=== PATIENT | female | born 1940 | race Caucasian/White ===

== ENCOUNTER 2016-08-04 14:19 | Emergency (ER) | payer OTHER ==
[2016-08-04 15:47] LABS: PROTHROMBIN TIME 12.8 SECONDS (11.7-14.0)
[2016-08-04 15:48] LABS: PTT 29.6 SECONDS (23.2-31.4)
[2016-08-04 15:51] LABS: CREATININE 1.2 mg/dL (0.5-1.0); POTASSIUM 4.5 mmol/L (3.5-5.1)
[2016-08-04 15:52] LABS: BASOPHIL 0.2 % (0-2); EOSINOPHIL 0.9 % (0-7); HCT 37.4 % (37.0-47.0); HGB 12.6 g/dl (12.5-16.0); LYMPHOCYTE 31.3 % (15-48); MCH 32.6 pg (25.0-31.0); MCHC 33.7 g/dL (32.0-36.0); MCV 96.6 fL (78.0-100.0); MONOCYTE 6.8 % (0-12); MPV 12.4 fL (6.0-9.5); NEUTROPHIL 60.8 % (41-80); PLT 214 K/uL (150-400); RBC 3.87 M/uL (4.20-5.40); RDW 12.7 % (11.5-14.0); WBC 8.7 K/uL (4.0-10.5)
== END 2016-08-04 20:51 | disposition other institution (70) ==
LOC: FER 14:19
PROVIDERS: Emergency Medicine
DX: R04.0 Epistaxis (principal); I95.89 Other hypotension; I45.10 Unspecified right bundle-branch block; I51.7 Cardiomegaly; J45.909 Unspecified asthma, uncomplicated; J44.9 Chronic obstructive pulmonary disease, unspecified; Z79.82 Long term (current) use of aspirin; Z79.51 Long term (current) use of inhaled steroids; Z79.84 Long term (current) use of oral hypoglycemic drugs; Z79.899 Other long term (current) drug therapy
CPT/HCPCS: 36415; 80048; 84484; 85025; 85610; 85730; 93005; J2405

== ENCOUNTER 2020-04-09 15:00 | Emergency (ER) | payer OTHER ==
[2020-04-09 12:35] LABS: BASOPHIL 0.2 % (0-2); EOSINOPHIL 0.5 % (0-7); LYMPHOCYTE 10.8 % (15-48); MCH 29.4 pg (25.0-31.0); MCV 101.5 fL (78.0-100.0); MONOCYTE 8.1 % (0-12); MPV 13.2 fL (6.0-9.5); NEUTROPHIL 79.7 % (41-80); NRBC 0; PLT 170 K/uL (150-400); RBC 1.97 M/uL (4.20-5.40); RDW 15.6 % (11.5-14.0); WBC 5.8 K/uL (4.0-10.5)
[2020-04-09 12:37] LABS: HGB 5.8 g/dl (12.5-16.0)
[2020-04-09 12:57] LABS: ALBUMIN 2.9 g/dL (3.4-5.0); BILIRUBIN - TOTAL 0.3 mg/dL (0.2-1.0); BUN/CREAT RATIO (CALC) 16.6 RATIO; CREATININE 1.81 mg/dL (0.51-0.95); GLOBULIN (CALCULATION) 3.7 g/dL; POTASSIUM 5.3 mmol/L (3.5-5.1); TOTAL PROTEIN 6.6 g/dL (6.4-8.2)
[2020-04-09 13:04] LABS: INR 1.06 (0.9-1.2); PROTHROMBIN TIME 13.1 SECONDS (11.4-13.6)
--- NOTE | 2020-04-09 19:30 | NUR ---
PATIENT ARRIVED ON FLOOR AT SHIFT CHANGE 1857, THIS RN GAVE REPORT THAT WAS GIVEN BY OUT PATIENT TO MAXIM GOINS AT THIS TIME. PATIENT WAS STABLE, IN BED WITH BED ALARM ON. 1ST UNIT OF BLOOD WAS COMPLETE UPON ARRIVE TO FLOOR.
--- NOTE | 2020-04-09 20:21 | NUR ---
PT RECEIVING BLOOD AT THIS TIME, COMPLETELY ALERT AND ORIENTED. VITAL SIGNS STABLE. ON 3 AND A HALF LITERS OF OXYGEN PT STATED SHE WEARS THIS AT HOME.
--- NOTE | 2020-04-09 20:42 | NUR ---
PT B/P OF 190s/[address] CHAMBERS, STATED IF PT HAD HER HOME MEDS SHE COULD TAKE THOSE. WILL CONTINUE TO MONITOR. PT NO MORE SHORT OF BREATH THAN USUAL SHE STATED
--- NOTE | 2020-04-09 22:10 | NUR ---
PT STILL REEIVING BLOOD AT THIS TIME, VITAL SIGNS STABLE, PT STATES SHE FEELS AND IS BREATHING THE SAME AND NOTHING NEW HAS CHANGED FAR HER BREATHING
--- NOTE | 2020-04-10 00:44 | NUR ---
PT VITAL SIGNS STABLE, PT LEFT VIA CAR WITH SON, OXYGEN WITH PATIENT, DISCHARGE INSTRUCTIONS AND REVIEWD WITH PATIENT
== END 2020-04-09 15:25 | disposition home or self-care (01) ==
LOC: FER 15:00
PROVIDERS: Emergency Medicine
DX: D64.9 Anemia, unspecified (principal); E11.9 Type 2 diabetes mellitus without complications; I10 Essential (primary) hypertension; Z88.5 Allergy status to narcotic agent
CPT/HCPCS: 36415; 80053; 85025; 85610; 86850; 86900; 86901; 86922; 99284; P9016

== ENCOUNTER 2020-04-10 19:38 | Emergency (ER) | payer OTHER | END 2020-04-10 23:15 | disposition home or self-care (01) | LOC: FER 19:38 | DX: R04.0 Epistaxis (principal); I10 Essential (primary) hypertension; E11.9 Type 2 diabetes mellitus without complications; J44.9 Chronic obstructive pulmonary disease, unspecified; Z95.1 Presence of aortocoronary bypass graft; Z88.5 Allergy status to narcotic agent | CPT/HCPCS: 96372; J2250 ==

== ENCOUNTER 2020-04-16 00:03 | Emergency (ER) | payer OTHER ==
[2020-04-16 00:42] LABS: BASOPHIL 0.2 % (0-2); EOSINOPHIL 1.5 % (0-7); HCT 29.9 % (37.0-47.0); HGB 9.2 g/dl (12.5-16.0); LYMPHOCYTE 13.7 % (15-48); MCH 29.8 pg (25.0-31.0); MCHC 30.8 g/dL (32.0-36.0); MCV 96.8 fL (78.0-100.0); MPV 12.8 fL (6.0-9.5); NEUTROPHIL 75.2 % (41-80); NRBC 0; PLT 224 K/uL (150-400); RBC 3.09 M/uL (4.20-5.40); RDW 14.5 % (11.5-14.0); WBC 8.3 K/uL (4.0-10.5)
[2020-04-16 00:52] LABS: INR 0.98 (0.9-1.2); PROTHROMBIN TIME 12.3 SECONDS (11.4-13.6)
== END 2020-04-16 05:38 | disposition home or self-care (01) ==
LOC: FER 00:03
PROVIDERS: Emergency Medicine
DX: R04.0 Epistaxis (principal); I10 Essential (primary) hypertension; J44.9 Chronic obstructive pulmonary disease, unspecified; Z99.81 Dependence on supplemental oxygen; Z09 Encounter for follow-up examination after completed treatment for conditions other than malignant neoplasm
CPT/HCPCS: 36415; 85025; 85610

== ENCOUNTER 2020-05-17 07:02 | Inpatient (IN) | payer OTHER ==
[2020-05-17 08:03] LABS: BASOPHIL 0.1 % (0-2); EOSINOPHIL 0.1 % (0-7); HCT 32.3 % (37.0-47.0); HGB 9.2 g/dl (12.5-16.0); LYMPHOCYTE 5.4 % (15-48); MCH 29.7 pg (25.0-31.0); MCHC 28.5 g/dL (32.0-36.0); MCV 104.2 fL (78.0-100.0); MONOCYTE 5.1 % (0-12); MPV 12.7 fL (6.0-9.5); NRBC 0; PLT 102 K/uL (150-400); RDW 14.6 % (11.5-14.0); WBC 6.9 K/uL (4.0-10.5)
[2020-05-17 08:15] LABS: INR 0.99 (0.9-1.2); PROTHROMBIN TIME 12.4 SECONDS (11.4-13.6); PTT 31.2 SECONDS (22.2-34.7)
[2020-05-17 08:24] LABS: ALBUMIN 3.1 g/dL (3.4-5.0); BILIRUBIN - TOTAL 0.4 mg/dL (0.2-1.0); BUN/CREAT RATIO (CALC) 21.9 RATIO; CREATININE 1.28 mg/dL (0.51-0.95); GLOBULIN (CALCULATION) 3.2 g/dL; TOTAL PROTEIN 6.3 g/dL (6.4-8.2)
[2020-05-17 08:31] LABS: BILIRUBIN NEGATIVE (NEGATIVE); BLOOD 1+ Ery/uL (NEGATIVE); CLARITY CLEAR (CLEAR); COLOR YELLOW (YELLOW); GLUCOSE (U) 1+ mg/dL (NORMAL); LEUKOCYTES NEGATIVE Leu/uL (NEGATIVE); NITRITE NEGATIVE (NEGATIVE); PROTEIN 2+ mg/dL (NEGATIVE); SPECIFIC GRAVITY >=1.030 (1.001-1.030); UROBILINOGEN 0.2 mg/dL (0.2-1.0); pH 5.5 (5.0-9.0)
[2020-05-17 08:36] LABS: POTASSIUM 6.5 mmol/L (3.5-5.1)
[2020-05-17 08:37] LABS: CKMB 3.7 ng/mL (0.0-3.6)
[2020-05-17 08:42] LABS: AMORPHOUS URATES CRYSTALS TRACE; URINARY WBC RARE
[2020-05-17 12:07] LABS: FOLIC ACID (SERUM) 9.4 ng/mL (8.6-58.9)
[2020-05-17] MEDS ORDERED: XANAX0.5 MG PO (15:21)
[2020-05-17] MEDS ORDERED: FERROUS SULFAT325 M2 PO (15:23)
[2020-05-17] MEDS ORDERED: ANTIVERT25 MG PO (15:24)
[2020-05-17] MEDS ORDERED: SINGULAIR10 MG PO (15:24)
[2020-05-17] MEDS ORDERED: LOPRESSOR25 MG PO (15:24)
[2020-05-17] MEDS ORDERED: VALSARTAN160 MG PO (15:25)
[2020-05-17] MEDS ORDERED: ZOLOFT50 MG PO (15:25)
[2020-05-17] MEDS ORDERED: ZOCOR40 MG PO (15:25)
[2020-05-17] MEDS ORDERED: ZINC50 MG PO (15:26)
[2020-05-17] MEDS ORDERED: MICRO-K10 MEQ PO (15:28)
[2020-05-17] MEDS ORDERED: MAGNESIUM400 MG PO (15:29)
[2020-05-17] MEDS ORDERED: CALCIUM + D3 E1 EACH PO (15:32)
--- NOTE | 2020-05-18 01:03 | NUR ---
LATE ENTRY 2300 BUMEX DRIP STOPPED PER ORDER
[2020-05-18 05:36] LABS: BASOPHIL 0 % (0-2); EOSINOPHIL 0 % (0-7); HCT 24.8 % (37.0-47.0); HGB 7.6 g/dl (12.5-16.0); LYMPHOCYTE 15.3 % (15-48); MCH 30.2 pg (25.0-31.0); MCHC 30.6 g/dL (32.0-36.0); MCV 98.4 fL (78.0-100.0); MONOCYTE 4.7 % (0-12); MPV 12.8 fL (6.0-9.5); NEUTROPHIL 79.5 % (41-80); NRBC 0; RBC 2.52 M/uL (4.20-5.40); RDW 13.9 % (11.5-14.0)
[2020-05-18 05:47] LABS: PLT 100 K/uL (150-400)
[2020-05-18 06:20] LABS: BUN/CREAT RATIO (CALC) 22.2 RATIO; CREATININE 1.62 mg/dL (0.51-0.95)
[2020-05-18 06:21] LABS: POTASSIUM 4.9 mmol/L (3.5-5.1)
--- NOTE | 2020-05-18 10:50 | NUR ---
05/17/20 Ms. Pratt's niece, who is a nurse, and the niece's boyfriend live in the home. Ms. Pratt has 02 at 3.5 L, rw, s. chair, 3in1, and concentrator. - Alan Pratt, son / POA, has requested [facility]. He chose [facility] should Hospice not accept patient. Affliations explained. - Dr. Boo was informed of discussion. A referral was made to Hospice per Dr. Boo's order.
--- NOTE | 2020-05-18 11:53 | NUR ---
TRANSFWERRED BY CHAIR TO ROOM TCU 3. REPORT GIVEN TO CANDICE. SPOKE WITH FAMILY ANDPATIENT AT LENGTH ABOUT DISCHARGE PLANS
[2020-05-19 05:52] LABS: BASOPHIL 0 % (0-2); EOSINOPHIL 0 % (0-7); HCT 24.7 % (37.0-47.0); HGB 7.9 g/dl (12.5-16.0); LYMPHOCYTE 9.7 % (15-48); MCH 30.4 pg (25.0-31.0); MONOCYTE 2.3 % (0-12); MPV 13.2 fL (6.0-9.5); NEUTROPHIL 87.6 % (41-80); NRBC 0; RDW 14.2 % (11.5-14.0); WBC 4.8 K/uL (4.0-10.5)
[2020-05-19 05:54] LABS: PLT 104 K/uL (150-400)
[2020-05-19 06:06] LABS: BUN/CREAT RATIO (CALC) 28.4 RATIO; CREATININE 1.62 mg/dL (0.51-0.95); POTASSIUM 4.8 mmol/L (3.5-5.1)
[2020-05-19] MEDS ORDERED: CLONAZEPAM0.5 MG PO (08:29)
[2020-05-19] MEDS ORDERED: BUMETANIDE1 MG PO (08:29)
[2020-05-19] MEDS ORDERED: MEDROL 4MG DOSEP4 MG PO (08:29)
[2020-05-19] MEDS ORDERED: DUONEB 2.5-0.5M1 AMP NEB (08:29)
[2020-05-19] MEDS ORDERED: AZITHROMYCIN250 MG PO (08:29)
[2020-05-19] MEDS ORDERED: ISOSORBIDE MONO60 MG PO (08:29)
--- NOTE | 2020-05-19 10:27 | NUR ---
05/19/20 Hospice has accepted Ms. Pratt for admission today. Beryl Cherry / MS RN, and Alan Pratt, son, have been notified. Family will bring pt's portable 02 and transport home. Family has been advised to call Hospice upon arrival to home. - Please notify Hospice when patient is discharged.
--- NOTE | 2020-05-19 11:05 | NUR ---
D/C [facility] PER ORDERS. BALLOON DEFLATED W/NO DIFFICULTY AND [facility] TIP INTACT. PATIENT WAS COMFORTABLE WITH NO COMPLAINTS. PATIENT HAD 200ML URINE OUTPUT PRIOR TO REMOVAL.
--- NOTE | 2020-05-19 13:04 | NUR ---
CALLED HOSPICE TO INFORM THE PATIENT HAS BEEN DISCHARGED. MESSAGE WAS TAKEN BY ABHI MONGE.
== END 2020-05-19 12:50 | disposition hospice, home (50) | DRG 280 ==
LOC: FER 07:02 → FTCU 10:22 → FER 10:22 → FICU 10:22 → FTCU 05-18 07:35
PROVIDERS: Emergency Medicine; ADMIT Allergy & Immunology Allergy
PROC: 5A09457 Assistance with Respiratory Ventilation, 24-96 Consecutive Hours, Continuous Positive Airway Pressure (ICD-10-PCS; principal; 2020-05-17)
DX: I13.0 Hypertensive heart and chronic kidney disease with heart failure and stage 1 through stage 4 chronic kidney disease, or unspecified chronic kidney disease (principal); I21.A1 Myocardial infarction type 2; I50.33 Acute on chronic diastolic (congestive) heart failure; G93.41 Metabolic encephalopathy; J18.9 Pneumonia, unspecified organism; J96.01 Acute respiratory failure with hypoxia; J96.02 Acute respiratory failure with hypercapnia; J44.1 Chronic obstructive pulmonary disease with (acute) exacerbation; J44.0 Chronic obstructive pulmonary disease with (acute) lower respiratory infection; N17.9 Acute kidney failure, unspecified; Z51.5 Encounter for palliative care; Z66 Do not resuscitate; F32.9 Major depressive disorder, single episode, unspecified; F41.9 Anxiety disorder, unspecified; F03.90 Unspecified dementia, unspecified severity, without behavioral disturbance, psychotic disturbance, mood disturbance, and anxiety; E03.9 Hypothyroidism, unspecified; M19.90 Unspecified osteoarthritis, unspecified site; D53.9 Nutritional anemia, unspecified; E87.5 Hyperkalemia; Z20.822 Contact with and (suspected) exposure to COVID-19; E11.22 Type 2 diabetes mellitus with diabetic chronic kidney disease; N18.9 Chronic kidney disease, unspecified; I27.20 Pulmonary hypertension, unspecified; I35.0 Nonrheumatic aortic (valve) stenosis; I25.10 Atherosclerotic heart disease of native coronary artery without angina pectoris; Z95.1 Presence of aortocoronary bypass graft; Z88.6 Allergy status to analgesic agent; Z88.1 Allergy status to other antibiotic agents
CPT/HCPCS: 36415; 36600; 71045; 80048; 80053; 81001; 82553; 82607; 82728; 82746; 82803; 82962; 83880; 84439; 84443; 84484; 85025; 85610; 85730; 93005; 94640; 94660; 96374; 96375; 96376; 97110; 97116; 97162; 97166; 97530-GP; 97535; J0360; J1650; J1940; J2405; J2920; U0002